=== PATIENT | female | born 2000 | race Caucasian/White ===

== ENCOUNTER 2022-12-23 00:06 | Inpatient (IN) | payer OTHER ==
[~2022-12-23] VITALS: Ht 170.2 cm; Wt 85.7 kg
--- OUTSIDE RECORDS SUMMARY | ~2022-12-23 | XMS | Continuity of Care Document ---
Demographics + + + | Address | [address] | | | [place] [address] | + + + | Preferred Language | Unknown | + + + | Marital Status | | + + + | Roman Catholic Affiliation | Unknown | + + + | Race | White | + + + | Ethnic Group | Unknown | + + + Author + + + | Author | [facility] | + + + | Organization | [facility] | + + + | Address | [address] | | | [place] [address] | + + + | Phone | | + + + Care Team Providers + + + + | Care Automobile Dealer Name | Role | Phone | + + + + Unavailable | Unavailable | + + + + Allergies No information. Encounters No information. Functional Status No information. Immunizations No information. Medications No information. Problems + + + + | date | description | facility | + + + + | 2022-05-22 09:53 | ENCNTR FOR SUPRVSN OF | [facility] | | | NORMAL FIRST PREG, FIRST | | | | [facility] | | + + + + | 2022-05-22 09:53 | LESS THAN 8 WEEKS | [facility] | | | GESTATION OF | | + + + + | 2022-05-22 09:53 | 8 WEEKS GESTATION OF | [facility] | | | | | + + + + | 2022-08-12 09:52 | ENCNTR FOR [facility]PRVSN OF | [facility] | | | NORMAL FIRST PREG, SECOND | | | | [facility]IMESTER | | + + + + | 2022-08-12 09:52 | 21 WEEKS GESTATION OF | [facility] | | | | | + + + + | 2022-09-12 07:55 | UTERINE SIZE-DATE | [facility] | | | DISCREPANCY, SECOND | | | | [facility] | | + + + + | 2022-09-12 07:55 | UTERINE SIZE-DATE | [facility] | | | DISCREPANCY, UNSPECIFIED | | | | [facility] | | + + + + | 2022-09-12 07:55 | 27 WEEKS GESTATION OF | [facility] | | | | | + + + + | 2022-10-28 13:55 | MATERNAL CARE FOR EXCESS | [facility] | | | GROWTH, S | | + + + + | 2022-10-28 13:55 | MATERNAL CARE FOR EXCESS | [facility] | | | GROWTH, THIRD | | | | TRIMESTER, UNSP | | + + + + | 2022-10-28 13:55 | ENCNTR FOR SUPRVSN OF | [facility] | | | NORMAL FIRST PREG, | | + + + + | 2022-10-28 13:55 | 35 WEEKS GESTATION OF | [facility] | | | | | + + + + | 2022-10-28 14:00 | MATERNAL CARE FOR EXCESS | [facility] | | | GROWTH, S | | + + + + | 2022-10-28 14:00 | ENCNTR FOR SUPRVSN OF | [facility] | | | NORMAL FIRST PREG, | | + + + + | 2022-11-28 09:00 | MATERNAL CARE FOR EXCESS | [facility] | | | GROWTH, S | | + + + + | 2022-11-28 09:00 | ENCNTR FOR SUPRVSN OF | [facility] | | | NORMAL FIRST PREG, | | + + + + | 2022-11-28 09:01 | MATERNAL CARE FOR EXCESS | [facility] | | | GROWTH, S | | + + + + | 2022-11-28 09:01 | MATERNAL CARE FOR EXCESS | [facility] | | | GROWTH, SECOND TRI, | | | | UNSP | | + + + + | 2022-11-28 09:01 | ENCNTR FOR SUPRVSN OF | [facility] | | | NORMAL FIRST PREG, | | + + + + | 2022-11-28 09:01 | 38 WEEKS GESTATION OF | [facility] | | | | | + + + + | 2022-12-10 23:34 | PELVIC AND PERINEAL PAIN | [facility] | + + + + | 2022-12-10 23:34 | NAUSEA | [facility] | + + + + Procedures No information. Results/Labs No information. Social History No information. Vital Signs No information."
[2022-12-23 00:43] LABS: AMPHETAMINES, UR NEGATIVE (NEGATIVE); BARBITURATES, UR NEGATIVE (NEGATIVE); BENZODIAZEPINES, UR NEGATIVE (NEGATIVE); BUPRENORPHINE,UR NEGATIVE (NEGATIVE); COCAINE, UR NEGATIVE (NEGATIVE); MARIJUANA (THC), UR NEGATIVE (NEGATIVE); MDMA, UR NEGATIVE (NEGATIVE); METHADONE, UR NEGATIVE (NEGATIVE); METHAMPHETAMINE, UR NEGATIVE (NEGATIVE); OPIATES, UR NEGATIVE (NEGATIVE); OXYCODONE, UR NEGATIVE (NEGATIVE); PHENCYCLIDINE, UR NEGATIVE (NEGATIVE); TRICYCLIC ANTIDEPRESSANT, UR NEGATIVE (NEGATIVE)
[2022-12-23 00:44] VITALS: BP 128/78
[2022-12-23 00:44] LABS: HEMATOCRIT 33.1 % (35.0-50.0); HEMOGLOBIN 11.4 g/dL (12.0-18.0); MCH 28.5 (27-36); MCHC 34.4 g/dl (30-36); MCV 82.8 fl (81-99); RDW 13.3 (10.5-15.0)
[2022-12-23 01:18] LABS: ABO A; ANTIBODY SCREEN NEGATIVE; RH POSITIVE
--- NOTE | 2022-12-23 17:18 | PR ---
[facility] [address] [facility] [place], [place] [address] Signed Progress Notes IP Datetime Report Generated by CPN: 12/23/2022 17:17 PROGRESS NOTES: [id number] Impression: Reassuring Heart Rate Procedures: Sterile Vag Exam Plan: Continue Present Management; Anticipate Vaginal Delivery VITAL SIGNS: [id number] EXAM: [id number] Dilatation: 9.0 Effacement: 100 Station: 1 Contractions: mild, q2 min MEMBRANES: [id number] Membranes Status: Ruptured Comments: Progressing well. Feeling pressure, discussed labor down vs trial of pushing and pt elects to labor down. FETUS A: [id number] FHR Baseline: 130 Variability: Moderate 6-25bpm Accelerations: 15X15 Decelerations: None FHR Category: Category I Presentation: Vertex Comments on Fetus A: No evidence of acidemia FETUS B: [id number] Signing Physician: Shantal Boykin DO Copies: ~ *Electronically Signed* 12/23/22 1717 SHANTAL BOYKIN DO PATIENT NAME: TASHIA HUBBARD ASHER PROGRESS NOTE DATE OF : 99 PHYSICIAN: SHANTAL BOYKIN DO RPT #: [id number] REPORT IS CONFIDENTIAL AND NOT TO BE RELEASED WITHOUT AUTHORIZATION
[2022-12-24 05:27] LABS: MCH 28.5 (27-36)
[2022-12-24 05:32] LABS: HEMATOCRIT 33.4 % (35.0-50.0); HEMOGLOBIN 11.3 g/dL (12.0-18.0); MCHC 33.9 g/dl (30-36); RBC 3.97 M/ul (4.3-5.7); RDW 13.7 (10.5-15.0)
--- NOTE | 2022-12-24 10:00 | NUR ---
MOM IN BED WITH BABY AT BREAST. DAD SITTING IN CHAIR. ALL APPEARED TO BE IN GOOD SPIRITS. EXPRESSED EXCITEMENT AT PROSPECT OF GOING HOME. CONSENTED TO PRAYER. PRAYED FOR GOOD BEGINNINGS AND ONGOING BLESSING.
--- NOTE | 2022-12-24 12:32 | PR ---
[facility] [address] [facility] [place], [place] [address] Signed PP Progress Notes Datetime Report Generated by CPN: 12/24/2022 12:32 SUBJECTIVE: [id number] Pain: Within Normal Limits Nausea/Vomiting: Denies Vital Signs: [id number] Vital Signs: Reviewed; Within Normal Limits Cardiovascular: Normal Respiratory: Normal Abdomen/Uterus: Normal Lochia: Normal Extremities: Normal Progress: Normal Exam Comments: NAD, sitting up in bed eating lunch RRR No dyspnea/ retractions Abd SNTND, FFBU Ext trace pedal edema, neg Donal's BL IMPRESSION/PLAN/PROCEDURES: [id number] Impression: Normal Progression Plan: Continue Present Management Progress Notes: PPD#1 s/p -progressing well , hgb 11.3. Ambulating, voiding, tolerating regular diet, pain well-controlled with orals. Denies dizziness/ lightheadedness -some challenges with latch/ , discussed pumping/ syringe feeding if needed to supplement. Anticipate DC to home tomorrow Signing Physician: Shantal Boykin DO Copies: ~ *Electronically Signed* 12/24/22 1232 SHANTAL BOYKIN DO PATIENT NAME: TASHIA HUBBARD PROGRESS NOTE DATE OF : 99 PHYSICIAN: SHANTAL BOYKIN DO RPT #: [id number] REPORT IS CONFIDENTIAL AND NOT TO BE RELEASED WITHOUT AUTHORIZATION
--- NOTE | 2022-12-25 09:15 | PR ---
[facility] [address] [place], [place] [address] Signed PP Progress Notes Datetime Report Generated by LORY: 12/25/2022 09:15 SUBJECTIVE: [id number] Pain: Within Normal Limits Nausea/Vomiting: Denies Vital Signs: [id number] Vital Signs: Reviewed; Within Normal Limits Cardiovascular: Normal Respiratory: Normal Abdomen/Uterus: Normal Lochia: Normal Extremities: Normal Progress: Normal Exam Comments: NAD, sitting up in bed, reports she is looking forward to going home RRR CTAB Abd SNTND, FFBU Ext trace pedal edema, neg Donal's BL IMPRESSION/PLAN/PROCEDURES: [id number] Impression: Normal Progression Plan: Continue Present Management; Discharge Procedures: None Progress Notes: PPD#2 s/p -progressing well . Initial concern at delivery about retained membranes - bleeding has been light, no membranes, reviewed increased risk of delayed bleeding and hemorrhage precautions. Hgb PPD#1 11.3 -Ambulating, voiding, tolerating regular diet, requesting DC to home today, pain well-controlled with orals. -Contraception discussed: has had "bad experiences" in the past with contraception, did well with NFP. Encouraged barrier method until return of regular menses, reviewed unpredictability of when return of menses occurs in mother -Mood stable, reviewed signs/ symptoms of baby blues vs depression - well - worked with strategic sourcing consultant this morning with great success, feeling confident to go home today Anticipate DC to home today once baby cleared by peds Signing Physician: Shantal Boykin, DO *Electronically Signed* 12/25/22 09 SHANTAL BOYKIN DO PATIENT NAME: TASHIA HUBBARD PROGRESS NOTE DATE OF : 99 PHYSICIAN: SHANTAL BOYKIN DO RPT #: [id number] REPORT IS CONFIDENTIAL AND NOT TO BE RELEASED WITHOUT AUTHORIZATION [address] [place] [address] Signed Copies: ~ *Electronically Signed* 12/25/22 09 SHANTAL BOYKIN DO PATIENT NAME: TASHIA HUBBARD PROGRESS NOTE DATE OF : 99 PHYSICIAN: SHANTAL BOYKIN DO RPT #: [id number] REPORT IS CONFIDENTIAL AND NOT TO BE RELEASED WITHOUT AUTHORIZATION
== END 2022-12-25 12:30 | disposition home or self-care (01) | DRG 807 ==
LOC: FBC 00:06
PROVIDERS: ADMIT Obstetrics & Gynecology; ATTEND Obstetrics & Gynecology
PROC: 10E0XZZ Delivery of Products of Conception, External Approach (ICD-10-PCS; principal; 2022-12-23)
PROC: 10D17Z9 Manual Extraction of Products of Conception, Retained, Via Natural or Artificial Opening (ICD-10-PCS; 2022-12-23)
PROC: 10907ZC Drainage of Amniotic Fluid, Therapeutic from Products of Conception, Via Natural or Artificial Opening (ICD-10-PCS; 2022-12-23)
PROC: 00HU33Z Insertion of Infusion Device into Spinal Canal, Percutaneous Approach (ICD-10-PCS; 2022-12-23)
PROC: 3E0R3BZ Introduction of Anesthetic Agent into Spinal Canal, Percutaneous Approach (ICD-10-PCS; 2022-12-23)
DX: O36.63X0 Maternal care for excessive fetal growth, third trimester, not applicable or unspecified (principal); Z37.0 Single live birth; O76 Abnormality in fetal heart rate and rhythm complicating labor and delivery; O99.52 Diseases of the respiratory system complicating childbirth; J45.909 Unspecified asthma, uncomplicated; Z67.10 Type A blood, Rh positive; Z3A.39 39 weeks gestation of pregnancy; O70.0 First degree perineal laceration during delivery; Z87.891 Personal history of nicotine dependence; Z79.51 Long term (current) use of inhaled steroids; Z79.899 Other long term (current) drug therapy
CPT/HCPCS: 01960; 36415; 85027; 86850; 86900; 86901; A9270; J0690; J2590

== ENCOUNTER 2024-04-01 06:00 | Inpatient (IN) | payer OTHER ==
[~2024-04-01] VITALS: Ht 172.7 cm; Wt 86.2 kg
[~2024-04-01 06:00] MED LIST: CALCIUM CARBONATE 500 MG CHEW PO PRN; LACTATED RINGER'S 1,000 ML IV SCH; MAGNESIUM HYDROXIDE/AL HYDROX 30 ML CUP PO PRN
[2024-04-01] MEDS ORDERED: OXYTOCIN/DEXTROSE 5% 20 UNITS/100 ML BAG IV SCH (06:15)
[2024-04-01] MEDS ORDERED: OXYTOCIN/0.9 % SODIUM CHLORIDE 500 ML IV SCH (06:30)
[2024-04-01 07:02] VITALS: BP 116/76
[2024-04-01 07:03] VITALS: BP 116/76
[2024-04-01 07:12] LABS: HEMATOCRIT 32.7 % (35.0-50.0); HEMOGLOBIN 11.4 g/dL (12.0-18.0); MCH 28.6 (27-36); MCHC 34.8 g/dl (30-36); MCV 82.3 fl (81-99); RBC 3.98 M/ul (4.3-5.7); RDW 14.2 (10.5-15.0)
[2024-04-01 07:44] LABS: ABO A; ANTIBODY SCREEN NEGATIVE; RH POSITIVE
[2024-04-01] MEDS ORDERED: miSOPROStoL 25 MCG TAB PV ONE ×2 (08:30→12:00)
[2024-04-01 09:40] LABS: AMPHETAMINES, URINE NEGATIVE (NEGATIVE); BARBITURATES, URINE NEGATIVE (NEGATIVE); BENZODIAZEPINE, URINE NEGATIVE (NEGATIVE); BUPRENORPHINE, URINE NEGATIVE (NEGATIVE); CANNABINOID, URINE NEGATIVE (NEGATIVE); COCAINE, URINE NEGATIVE (NEGATIVE); ECSTASY, URINE NEGATIVE (NEGATIVE); FENTANYL, URINE NEGATIVE (NEGATIVE); METHADONE, URINE NEGATIVE (NEGATIVE); OPIATES, URINE NEGATIVE (NEGATIVE); OXYCODONE, URINE NEGATIVE (NEGATIVE); PHENCYCLIDINE, URINE NEGATIVE (NEGATIVE)
[2024-04-01] MEDS ORDERED: fentaNYL citrate 100 MCG/2 ML VIAL ONE (17:10)
[2024-04-01] MEDS ORDERED: LACTATED RINGER'S 500 ML IV PRN (17:15)
[2024-04-01] MEDS ORDERED: LACTATED RINGER'S 2,000 ML IV ONE (17:15)
[2024-04-01] MEDS ORDERED: ePHEDrine sulfate 5 MG/ML SYRINGE IV PRN (17:15)
[2024-04-01] MEDS ORDERED: ROPIVACAINE 0.2% 200 ML BAG EPIDURAL SCH (17:15)
[2024-04-01] MEDS ORDERED: diphenhydrAMINE HCL 50 MG/ML VIAL IV ONE (18:30)
[2024-04-01] MEDS ORDERED: ePHEDrine KIT FOR FBC IV ONE (19:39)
[2024-04-01] MEDS ORDERED: ondansetron HCL 4 MG/2 ML VIAL IV ONE (20:00)
[2024-04-02] MEDS ORDERED: LIDOCAINE 2% VISCOUS 6 ML SYR TOP ONE ×2 (03:45)
[2024-04-02] MEDS ORDERED: MAGNESIUM HYDROXIDE 30 ML UDC PO PRN (03:45)
[2024-04-02] MEDS ORDERED: CALCIUM CARBONATE 500 MG CHEW PO PRN (03:45)
[2024-04-02] MEDS ORDERED: WITCH HAZEL/GLYCERIN 1 EA PAD TOP PRN (03:45)
[2024-04-02] MEDS ORDERED: ACETAMINOPHEN 325 MG TAB PO PRN (03:45)
[2024-04-02] MEDS ORDERED: OXYTOCIN/0.9 % SODIUM CHLORIDE 500 ML IV SCH (03:45)
[2024-04-02] MEDS ORDERED: IBUPROFEN 600 MG TAB PO PRN (03:45)
[2024-04-02] MEDS ORDERED: MAGNESIUM HYDROXIDE/AL HYDROX 30 ML CUP PO PRN (03:45)
[2024-04-02] MEDS ORDERED: SENNOSIDES/DOCUSATE 1 EA TAB PO SCH (09:00)
== END 2024-04-03 10:45 | disposition home or self-care (01) | DRG 807 ==
LOC: FBC 06:00
PROVIDERS: ADMIT Obstetrics & Gynecology; ATTEND Obstetrics & Gynecology
PROC: 10E0XZZ Delivery of Products of Conception, External Approach (ICD-10-PCS; principal; 2024-04-01)
PROC: 3E0R3BZ Introduction of Anesthetic Agent into Spinal Canal, Percutaneous Approach (ICD-10-PCS; 2024-04-01)
PROC: 00HU33Z Insertion of Infusion Device into Spinal Canal, Percutaneous Approach (ICD-10-PCS; 2024-04-01)
DX: O80 Encounter for full-term uncomplicated delivery (principal); Z37.0 Single live birth; Z3A.39 39 weeks gestation of pregnancy
CPT/HCPCS: 01960; 36415; 80307; 85027; 86850; 86900; 86901; A9270; J2405; J2590